=== PATIENT | male | born 1990 | race Hispanic/Latino ===

== ENCOUNTER 2018-08-15 13:47 | Emergency (ER) | payer SELFPAY ==
[~2018-08-15] VITALS: Ht 175.3 cm; Wt 142.9 kg
--- OUTSIDE RECORDS SUMMARY | 2018-08-15 13:50 | XMS REPORT ---
Author Author [facility] Address Unknown Phone Unavailable Care Team Providers Care Tube Buffer Name Role Phone Unavailable Unavailable Payers Payer Name Policy Type Policy Number Effective Date Expiration Date Problems This patient has no known problems. Allergies, Adverse Reactions, Alerts Allergy Name Allergy Type Status Severity Reaction(s) Onset Date Inactive Date Treating Clinician Comments No Known Allergies DA Active U 2017-12-31 00:00:00 No Known Contrast Allergies DA Active U 2007-02-21 00:00:00 No Known Drug Allergies DA Active U 2007-02-21 00:00:00 No Known Food Allergies DA Active U 2007-02-21 00:00:00 No Known Other Allergies DA Active U 2007-02-21 00:00:00 Medications This patient has no known medications.
[2018-08-15 16:27] LABS: BASOPHILS % 0.4 % (0.0-1.0); EOSINOPHILS # (AUTO) 0.1 (0.0-0.4); EOSINOPHILS % 0.8 % (0.0-6.0); HEMATOCRIT 43.6 % (38.2-49.6); HEMOGLOBIN 14.9 g/dL (14.0-18.0); LYMPHOCYTES # (AUTO) 1.8 (1.0-3.2); LYMPHOCYTES % 20.1 % (18.0-39.1); MEAN CORPUSCULAR HEMOGLOBIN 31.8 pg (28-32); MEAN CORPUSCULAR HGB CONC 34.2 g/dL (31-35); MONOCYTES # (AUTO) 0.6 (0.2-0.8); MONOCYTES % 6.7 % (4.4-11.3); NEUTROPHILS # (AUTO) 6.4 (2.1-6.9); NEUTROPHILS % 71.6 % (38.7-80.0); PLATELET COUNT 285 x10e3/uL (140-360); RED BLOOD COUNT 4.69 x10e6/uL (4.3-5.7)
[2018-08-15 16:52] LABS: ALANINE AMINOTRANSFERASE 40 IU/L (0-55); ALBUMIN/GLOBULIN RATIO 1.3 (0.8-2.0); ALKALINE PHOSPHATASE 79 IU/L (40-150); AMYLASE 85 U/L (25-125); ANION GAP 10.8 mmol/L (8-16); BLOOD UREA NITROGEN 14 mg/dL (7-26); BUN/CREATININE RATIO 17 (6-25); CALCIUM 9.6 mg/dL (8.4-10.2); CARBON DIOXIDE 26 mmol/L (22-29); CHLORIDE 102 mmol/L (98-107); CREATINE KINASE 86 IU/L (30-200); CREATININE, SERUM 0.81 mg/dL (0.72-1.25); EST GLOMERULAR FILTRATION RATE > 60 ML/MIN (60-); GLUCOSE 89 mg/dL (74-118); LIPASE 26 U/L (8-78); POTASSIUM 3.8 mmol/L (3.5-5.1); SODIUM 135 mmol/L (136-145)
== END 2018-08-15 18:07 | disposition home or self-care (01) ==
LOC: ER 13:47
DX: K21.9 Gastro-esophageal reflux disease without esophagitis (principal)
CPT/HCPCS: 36415; 80053; 82150; 82550; 82553; 83690; 84484; 85025; 93005; 99283

== ENCOUNTER 2019-09-18 22:26 | Emergency (ER) | payer SELFPAY ==
[~2019-09-18] VITALS: Ht 175.3 cm; Wt 142.9 kg
[2019-09-18] MEDS ORDERED: PANTOPRAZOLE 40 MG 10ML VIAL IV STA (22:45)
--- NOTE | 2019-09-18 23:07 | Emergency Department Note ---
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 Arrival Mode: [place] Onset (how long ago): day(s) (7) Location: UPPER ABD Quality: PAIN Radiation: Reports back Severity: mild Onset quality: gradual Duration (how long): day(s) (7) Progression: unchanged Chronicity: recurrent Context: Denies recent illness, Denies recent surgery Relieving factors: none Exacerbating factors: none Associated symptoms: Reports nausea/vomiting (WITHOUT VOMITING), Reports other (REPORTS BELCHING A LOT OVER LAST 7 DAYS WELL.) Treatments prior to arrival: none Past Medical/Family History Physician Review I have reviewed the patient's past medical and family history. Any updates have been documented here. Past Medical History Recent Fever: No Clinical Suspicion of Infectio: No New/Unexplained Change in Ment: No Other Medical History: PANCREATITIS H-PYLORI GASTRIC ULCERS Past Surgical History: None Social History Smoking Cessation: Current some day smoker Alcohol Use: Social Any Illegal Drug Use: No Physically hurt or threatened: No Family History Other family history HTN Other Last Tetanus: UNKNOWN Review of Systems Review of Systems Constitutional: Reports no symptoms EENTM: Reports no symptoms Cardiovascular: Reports no symptoms Respiratory: Reports no symptoms Gastrointestinal: Reports as per HPI Genitourinary: Reports no symptoms Musculoskeletal: Reports no symptoms Integumentary: Reports no symptoms Neurological: Reports no symptoms Psychological: Reports no symptoms Endocrine: Reports no symptoms Hematological/Lymphatic: Reports no symptoms Physical Exam Related Data Allergies: Coded Allergies: No Known Allergies (Unverified , 08/15/18) Triage Vital Signs Vital Signs Date Time Temp Pulse Resp B/P (MAP) Pulse Ox O2 Delivery O2 Flow Rate FiO2 09/18/19 22:41 98.4 102 20 139/95 100 Room Air Vital signs reviewed: Yes Physical Exam CONSTITUTIONAL Constitutional: Present well-developed, Present well-nourished, Present other (NO DISTRESS NOTED) HENT HENT: Present normocephalic, Present atraumatic, Present oropharynx clear/moist, Present nose normal HENT L/R: Present left ext ear normal, Present right ext ear normal EYES Eyes: Reports PERRL, Reports conjunctivae normal NECK Neck: Present ROM normal PULMONARY Pulmonary: Present effort normal, Present breath sounds normal CARDIOVASCULAR Cardiovascular: Present regular rhythm, Present heart sounds normal, Present capillary refill normal, Present normal rate GASTROINTESTINAL Abdominal: Present soft, Present bowel sounds normal, Present tender (MILD EP IGASTRIC) GENITOURINARY Genitourinary: Present exam deferred SKIN Skin: Present warm, Present dry MUSCULOSKELETAL Musculoskeletal: Present ROM normal NEUROLOGICAL Neurological: Present alert, Present oriented x 3, Present no gross motor or sensory deficits PSYCHOLOGICAL Psychological: Present mood/affect normal, Present judgement normal Results Laboratory Laboratory Laboratory Tests Test 09/18/19 22:40 09/18/19 22:30 White Blood Count 11.89 x10e3/uL (4.8-10.8) Red Blood Count 4.94 x10e6/uL (4.3-5.7) Hemoglobin 15.6 g/dL (14.0-18.0) Hematocrit 46.3 % (38.2-49.6) Mean Corpuscular Volume 93.7 fL (81-99) Mean Corpuscular Hemoglobin 31.6 pg (28-32) Mean Corpuscular Hemoglobin Concent 33.7 g/dL (31-35) Red Cell Distribution Width 12.7 % (11.7-14.4) Platelet Count 319 x10e3/uL (140-360) Neutrophils (%) (Auto) 73.4 % (38.7-80.0) Lymphocytes (%) (Auto) 17.4 % (18.0-39.1) Monocytes (%) (Auto) 6.5 % (4.4-11.3) Eosinophils (%) (Auto) 2.0 % (0.0-6.0) Basophils (%) (Auto) 0.3 % (0.0-1.0) Neutrophils # (Auto) 8.7 (2.1-6.9) Lymphocytes # (Auto) 2.1 (1.0-3.2) Monocytes # (Auto) 0.8 (0.2-0.8) Eosinophils # (Auto) 0.2 (0.0-0.4) Basophils # (Auto) 0.0 (0.0-0.1) Absolute Immature Granulocyte (auto 0.05 x10e3/uL (0-0.1) Sodium Level 138 mmol/L (136-145) Potassium Level 3.8 mmol/L (3.5-5.1) Chloride Level 105 mmol/L (98-107) Carbon Dioxide Level 23 mmol/L (22-29) Anion Gap 13.8 mmol/L (8-16) Blood Urea Nitrogen 11 mg/dL (7-26) Creatinine 0.83 mg/dL (0.72-1.25) Estimat Glomerular Filtration Rate > 60 ML/MIN (60-) BUN/Creatinine Ratio 13 (6-25) Glucose Level 99 mg/dL (74-118) Calcium Level 9.0 mg/dL (8.4-10.2) Total Bilirubin 0.3 mg/dL (0.2-1.2) Aspartate Amino Transf (AST/SGOT) 34 IU/L (5-34) Alanine Aminotransferase (ALT/SGPT) 74 IU/L (0-55) Alkaline Phosphatase 79 IU/L (40-150) Creatine Kinase 62 IU/L (30-200) Creatine Kinase MB 0.50 ng/mL (0-5.0) Troponin I < 0.001 ng/mL (0-0.300) Total Protein 7.7 g/dL (6.5-8.1) Albumin 4.1 g/dL (3.5-5.0) Globulin 3.6 g/dL (2.3-3.5) Albumin/Globulin Ratio 1.1 (0.8-2.0) Amylase Level 84 U/L (25-125) Lipase 26 U/L (8-78) Urine Color Yellow (YELLOW) Urine Clarity Clear (CLEAR) Urine pH 6 (5 - 7) Urine Specific [place] 1.005 (1.010-1.025) Urine Protein Negative (NEGATIVE) Urine Glucose (UA) Negative (NEGATIVE) Urine Ketones Negative (NEGATIVE) Urine Blood Small (NEGATIVE) Urine Nitrite Negative (NEGATIVE) Urine Bilirubin Negative (NEGATIVE) Urine Urobilinogen 0.2 mg/dL (0.2 - 1) Urine Leukocyte Esterase Negative (NEGATIVE) Urine RBC 0-5 /HPF (0-5) Urine WBC 0-5 /HPF (0-5) Urine Epithelial Cells None /LPF (NONE) Urine Bacteria Rare /HPF (NONE) Lab results reviewed: Yes Procedures 12 Lead ECG Interpretation ECG Interpretation : 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 CMP, AMYLASE, LIPASE, CARDIAC ENZYMES ORDERED TO EVAL FOR MYOCARDIAL INFARCTION, PANCREATITIS, ELEVATED LFT'S, ELECTROLYTE ABNORMALITY. PROTONIX 40 MG IV ORDERED PT DISCHARGED WITH PROTONIX 40 MG PO QD #15, BENTYL 20 MG 1 PO Q 6 HOURS PRN ABD PAIN #20, ZOFRAN ODT 4 MG 1 SL Q 6 HOURS PRN NAUSEA #20 PT INSTRUCTED ON BLAND DIET Reassessment Reassessment time: 00:57 Reassessment PT STATES FEELING BETTER SINCE RECEIVING THE PROTONIX Assessment & Plan Final Impression: (1) Gastritis Depart Disposition: HOME, SELF-CARE Last Vital Signs Date Time Temp Pulse Resp B/P (MAP) Pulse Ox O2 Delivery O2 Flow Rate FiO2 09/18/19 22:41 98.4 102 20 139/95 100 Room Air Medications in the ED Pantoprazole Sodium 40 mg NOW STAT IV ; Start 09/18/19 at 22:45; Stop 09/18/19 at 22:46; Status UNV CEDRICK PERALTA MD Sep 18, 2019 23:07
[2019-09-18 23:17] LABS: BASOPHILS % 0.3 % (0.0-1.0); EOSINOPHILS # (AUTO) 0.2 (0.0-0.4); HEMATOCRIT 46.3 % (38.2-49.6); HEMOGLOBIN 15.6 g/dL (14.0-18.0); LYMPHOCYTES # (AUTO) 2.1 (1.0-3.2); LYMPHOCYTES % 17.4 % (18.0-39.1); MEAN CORPUSCULAR HEMOGLOBIN 31.6 pg (28-32); MEAN CORPUSCULAR HGB CONC 33.7 g/dL (31-35); MEAN CORPUSCULAR VOLUME 93.7 fL (81-99); MONOCYTES # (AUTO) 0.8 (0.2-0.8); MONOCYTES % 6.5 % (4.4-11.3); NEUTROPHILS # (AUTO) 8.7 (2.1-6.9); NEUTROPHILS % 73.4 % (38.7-80.0); PLATELET COUNT 319 x10e3/uL (140-360); RED BLOOD COUNT 4.94 x10e6/uL (4.3-5.7); RED CELL DISTRIBUTION WIDTH 12.7 % (11.7-14.4)
[2019-09-18 23:20] LABS: BILIRUBIN,URINE NEGATIVE (NEGATIVE); CLARITY,URINE CLEAR (CLEAR); COLOR,URINE YELLOW (YELLOW); KETONES,URINE NEGATIVE (NEGATIVE); LEUKOCYTE ESTERASE ,URINE NEGATIVE (NEGATIVE); NITRITE,URINE NEGATIVE (NEGATIVE); PROTEIN,URINE DIPSTICK NEGATIVE (NEGATIVE); URINE UROBILINOGEN 0.2 mg/dL (0.2 - 1)
[2019-09-18 23:25] LABS: BACTERIA,URINE RARE /HPF; RBC,URINE 0-5 /HPF (0-5); WBC,URINE (MAN) 0-5 /HPF (0-5)
[2019-09-18 23:36] LABS: ALANINE AMINOTRANSFERASE 74 IU/L (0-55); ALBUMIN 4.1 g/dL (3.5-5.0); ALBUMIN/GLOBULIN RATIO 1.1 (0.8-2.0); ALKALINE PHOSPHATASE 79 IU/L (40-150); ANION GAP 13.8 mmol/L (8-16); BLOOD UREA NITROGEN 11 mg/dL (7-26); BUN/CREATININE RATIO 13 (6-25); CARBON DIOXIDE 23 mmol/L (22-29); CHLORIDE 105 mmol/L (98-107); CREATINE KINASE 62 IU/L (30-200); CREATININE, SERUM 0.83 mg/dL (0.72-1.25); EST GLOMERULAR FILTRATION RATE > 60 ML/MIN (60-); GLUCOSE 99 mg/dL (74-118); POTASSIUM 3.8 mmol/L (3.5-5.1); SODIUM 138 mmol/L (136-145)
[2019-09-18 23:37] LABS: AMYLASE 84 U/L (25-125); LIPASE 26 U/L (8-78)
== END 2019-09-19 01:40 | disposition home or self-care (01) ==
LOC: ER 22:45
DX: R10.13 Epigastric pain (principal); K29.70 Gastritis, unspecified, without bleeding; R11.0 Nausea; R42 Dizziness and giddiness; R14.2 Eructation; Z86.39 Personal history of other endocrine, nutritional and metabolic disease; F17.210 Nicotine dependence, cigarettes, uncomplicated
CPT/HCPCS: 36415; 80053; 81001; 82150; 82550; 82553; 83690; 84484; 85025; 93005; 96374; 99284; C9113

== ENCOUNTER 2021-08-28 14:58 | Emergency (ER) | payer SELFPAY ==
[~2021-08-28] VITALS: Ht 175.3 cm; Wt 157.0 kg
[2021-08-28] MEDS ORDERED: SODIUM CHLORIDE 0.9% 1000ML 1,000 ML IV STA (15:35)
[2021-08-28] MEDS ORDERED: ONDANSETRON ODT4 MG PO (15:42)
[2021-08-28] MEDS ORDERED: OMEPRAZOLE40 MG PO (15:42)
[2021-08-28] MEDS ORDERED: ONDANSETRON HCL INJ 2MG/ML 2ML 2 MG/ML VIAL IV ONE (15:45)
[2021-08-28] MEDS ORDERED: ONDANSETRON HCL INJ 2MG/ML 2ML 2 MG/ML VIAL ONE (15:53)
[2021-08-28] MEDS ORDERED: FAMOTIDINE 20 MG/2 ML VIAL IV ONE (15:54)
[2021-08-28] MEDS ORDERED: SODIUM CHLORIDE 0.9% 1000ML 1,000 ML ONE (15:54)
== END 2021-08-28 16:49 | disposition home or self-care (01) ==
LOC: FSED 15:17
DX: K29.71 Gastritis, unspecified, with bleeding (principal)
CPT/HCPCS: 80048; 80076; 81003; 85025; 96374; 96375; 99283; C9113; J2405; J7030

== ENCOUNTER 2021-12-05 21:16 | Emergency (ER) | payer SELFPAY ==
[~2021-12-05] VITALS: Ht 175.3 cm; Wt 156.9 kg
[~2021-12-05 21:16] MED LIST: OMEPRAZOLE40 MG PO; ONDANSETRON ODT4 MG PO
[2021-12-05] MEDS ORDERED: LACTATED RINGER'S 1,000 ML INJ ONE (21:30)
[2021-12-05] MEDS ORDERED: DICYCLOMINE HCL 20 MG/2 ML VIAL IM ONE (21:30)
[2021-12-05 21:39] LABS: BASOPHILS % 0.4 % (0.0-1.0); EOSINOPHILS # (AUTO) 0.3 (0.0-0.4); EOSINOPHILS % 2.4 % (0.0-6.0); HEMATOCRIT 47.5 % (38.2-49.6); HEMOGLOBIN 15.7 g/dL (14.0-18.0); LYMPHOCYTES # (AUTO) 2.2 (1.0-3.2); LYMPHOCYTES % 20.7 % (18.0-39.1); MEAN CORPUSCULAR HEMOGLOBIN 32.2 pg (28-32); MEAN CORPUSCULAR HGB CONC 33.1 g/dL (31-35); MEAN CORPUSCULAR VOLUME 97.3 fL (81-99); MONOCYTES # (AUTO) 0.6 (0.2-0.8); MONOCYTES % 5.8 % (4.4-11.3); NEUTROPHILS # (AUTO) 7.6 (2.1-6.9); NEUTROPHILS % 70.4 % (38.7-80.0); PLATELET COUNT 338 x10e3/uL (140-360); RED BLOOD COUNT 4.88 x10e6/uL (4.3-5.7); RED CELL DISTRIBUTION WIDTH 12.8 % (11.7-14.4)
[2021-12-05 21:46] LABS: INR 0.92; PARTIAL THROMBOPLASTIN TIME 26.2 seconds (23.8-35.5); PROTHROMBIN TIME 13.2 seconds (11.9-14.5)
[2021-12-05 21:58] LABS: ALBUMIN 3.9 g/dL (3.5-5.0); ALBUMIN/GLOBULIN RATIO 1.1 (0.8-2.0); ANION GAP 15.8 mmol/L (8-16); CALCIUM 9.8 mg/dL (8.4-10.2); CREATININE, SERUM 0.91 mg/dL (0.72-1.25); POTASSIUM 3.8 mmol/L (3.5-5.1)
[2021-12-05] MEDS ORDERED: IOPAMIDOL 370 MG/ML 100 ML INFUS..BTL INJ ONE (22:24)
[2021-12-05] MEDS ORDERED: OMEPRAZOLE40 MG PO (22:50)
== END 2021-12-05 22:59 | disposition home or self-care (01) ==
LOC: ER 21:34
DX: K92.1 Melena (principal); K27.9 Peptic ulcer, site unspecified, unspecified as acute or chronic, without hemorrhage or perforation; Z20.822 Contact with and (suspected) exposure to COVID-19; E66.09 Other obesity due to excess calories; Z68.43 Body mass index [BMI] 50.0-59.9, adult
CPT/HCPCS: 36415; 74177; 80053; 82270; 83690; 85025; 85610; 85730; 99284; C9113; J0500; J7121; Q9967

== ENCOUNTER 2022-02-02 10:20 | Emergency (ER) | payer SELFPAY ==
[~2022-02-02] VITALS: Ht 175.3 cm; Wt 163.3 kg
== END 2022-02-02 11:02 | disposition home or self-care (01) ==
LOC: FSED 10:28
DX: R42 Dizziness and giddiness (principal); R73.9 Hyperglycemia, unspecified; Z87.11 Personal history of peptic ulcer disease; F17.210 Nicotine dependence, cigarettes, uncomplicated
CPT/HCPCS: 36415; 82948; 99282

== ENCOUNTER 2022-07-30 19:46 | Emergency (ER) | payer SELFPAY ==
[~2022-07-30] VITALS: Ht 175.3 cm; Wt 163.3 kg
[2022-07-30] MEDS ORDERED: TRAMADOL HCL 50 MG TAB PO ONE (21:15)
[2022-07-30] MEDS ORDERED: KETOROLAC TROMETHAMINE 30 MG/ML VIAL IV STA (21:43)
[2022-07-30] MEDS ORDERED: SODIUM CHLORIDE 0.9% 1000ML 1,000 ML IV SCH (21:45)
[2022-07-30] MEDS ORDERED: PIPERACILLIN/TAZOBACTAM 3.375 GM VIAL ONE (21:51)
[2022-07-30] MEDS ORDERED: KETOROLAC TROMETHAMINE 30 MG/ML VIAL ONE (21:51)
[2022-07-30] MEDS ORDERED: SODIUM CHLORIDE 0.9% 1000ML 1,000 ML ONE (21:51)
[2022-07-31] MEDS ORDERED: CLEOCIN HCL300 MG PO (00:16)
[2022-07-31] MEDS ORDERED: DOXYCYCLINE MO100 M1 PO (00:16)
[2022-07-31] MEDS ORDERED: ULTRAM 50MG50 MG PO (00:17)
[2022-07-31 00:32] VITALS: O2SAT 97
== END 2022-07-31 00:34 | disposition home or self-care (01) ==
LOC: FSED 20:06
DX: M79.675 Pain in left toe(s) (principal); L03.032 Cellulitis of left toe; B35.1 Tinea unguium; B35.3 Tinea pedis; E66.01 Morbid (severe) obesity due to excess calories
CPT/HCPCS: 73660; 80053; 85025; 99284; J1885; J2543; J7030

== ENCOUNTER 2022-09-22 12:40 | Emergency (ER) | payer SELFPAY ==
[~2022-09-22] VITALS: Ht 175.3 cm; Wt 166.3 kg
[~2022-09-22 12:40] MED LIST changes: +CLEOCIN HCL300 MG PO; +DOXYCYCLINE MO100 M1 PO; +ULTRAM 50MG50 MG PO
[2022-09-22] MEDS ORDERED: SODIUM CHLORIDE 0.9% 1000ML 1,000 ML IV SCH (14:30)
[2022-09-22] MEDS ORDERED: KETOROLAC TROMETHAMINE 30 MG/ML VIAL IV ONE (14:35)
[2022-09-22] MEDS ORDERED: IOPAMIDOL 370 MG/ML 100 ML INFUS..BTL INJ ONE (14:40)
[2022-09-22] MEDS ORDERED: FAMOTIDINE 20 MG/2 ML VIAL IV ONE ×2 (14:56→15:00)
[2022-09-22] MEDS ORDERED: SODIUM CHLORIDE 0.9% 1000ML 1,000 ML ONE (15:00)
[2022-09-22] MEDS ORDERED: KETOROLAC TROMETHAMINE 30 MG/ML VIAL ONE (15:00)
[2022-09-22] MEDS ORDERED: PREDNISONE50 MG PO (17:34)
[2022-09-22] MEDS ORDERED: PANTOPRAZOLE SO40 MG PO (17:34)
[2022-09-22] MEDS ORDERED: CYCLOBENZAPRINE10 MG PO (17:35)
[2022-09-22 17:52] VITALS: O2SAT 96
== END 2022-09-22 17:52 | disposition home or self-care (01) ==
LOC: FSED 12:42
DX: R10.30 Lower abdominal pain, unspecified (principal); M54.16 Radiculopathy, lumbar region; K21.9 Gastro-esophageal reflux disease without esophagitis; E66.01 Morbid (severe) obesity due to excess calories; Z87.19 Personal history of other diseases of the digestive system; F17.210 Nicotine dependence, cigarettes, uncomplicated
CPT/HCPCS: 74177; 80053; 81003; 85025; 96374; 96375; 99284; J1885; J7030; Q9967

== ENCOUNTER 2024-05-17 13:44 | Emergency (ER) | payer SELFPAY ==
[~2024-05-17] VITALS: Ht 175.3 cm; Wt 170.2 kg
[~2024-05-17 13:44] MED LIST changes: +BENZONATATE200 MG PO; +CYCLOBENZAPRINE10 MG PO; +IBUPROFEN200 MG PO; +LOMOTIL TABLET1 EACH PO; +PANTOPRAZOLE SO40 MG PO; +PREDNISONE50 MG PO; +PROVENTIL HFA6.7 GM INH; +TAMIFLU75 MG PO; +TYLENOL325 MG PO
[2024-05-17] MEDS ORDERED: LEVOTHYROXINE50 MCG PO (14:19)
[2024-05-17] MEDS: ONDANSETRON HCL INJ 2MG/ML 2ML 2 MG/ML VIAL IV STA (14:34)
[2024-05-17] MEDS: ASPIRIN 325 MG TAB PO ONE (14:34)
[2024-05-17 15:56] VITALS: PULSE 85; RESP 19; TEMP 97.5; O2SAT 97
== END 2024-05-17 15:56 | disposition home or self-care (01) ==
LOC: FSED 13:47
DX: R42 Dizziness and giddiness (principal); R07.89 Other chest pain; R20.0 Anesthesia of skin; R20.2 Paresthesia of skin; E03.9 Hypothyroidism, unspecified; K21.9 Gastro-esophageal reflux disease without esophagitis; E66.9 Obesity, unspecified; F41.9 Anxiety disorder, unspecified; R94.31 Abnormal electrocardiogram [ECG] [EKG]; Z87.19 Personal history of other diseases of the digestive system
CPT/HCPCS: 71046; 80053; 80076; 80307; 81003; 82553; 83880; 84484; 85025; 85379; 93005; 96374; 99284; J2405

== ENCOUNTER 2024-08-27 00:52 | Emergency (ER) | payer SELFPAY ==
[~2024-08-27] VITALS: Ht 175.3 cm; Wt 170.1 kg
[~2024-08-27 00:52] MED LIST changes: +ETODOLAC400 MG PO; +LEVOTHYROXINE50 MCG PO; +NEURONTIN300 MG PO; +PAROXETINE HCL20 MG PO; +PROCTOFOAM-HC F10 GM TOP; +TIZANIDINE HCL4 MG PO
[2024-08-27 00:57] VITALS: PULSE 92; RESP 18; TEMP 98.4
[2024-08-27 01:07] LABS: BASOPHILS % 0.3 % (0.0-1.0); EOSINOPHILS # (AUTO) 0.1 (0.0-0.4); EOSINOPHILS % 0.8 % (0.0-6.0); HEMATOCRIT 47.2 % (38.2-49.6); LYMPHOCYTES % 22.2 % (18.0-39.1); MEAN CORPUSCULAR HEMOGLOBIN 31.6 pg (28-32); MEAN CORPUSCULAR HGB CONC 33.9 g/dL (31-35); MEAN CORPUSCULAR VOLUME 93.1 fL (81-99); MONOCYTES # (AUTO) 0.7 (0.2-0.8); MONOCYTES % 8.2 % (4.4-11.3); NEUTROPHILS # (AUTO) 6.1 (2.1-6.9); NEUTROPHILS % 68.3 % (38.7-80.0); PLATELET COUNT 320 x10e3/uL (140-360); RED BLOOD COUNT 5.07 x10e6/uL (4.3-5.7); RED CELL DISTRIBUTION WIDTH 13.2 % (11.7-14.4); WHITE BLOOD COUNT 8.97 x10e3/uL (4.8-10.8)
[2024-08-27 01:16] LABS: BILIRUBIN,URINE NEGATIVE (NEGATIVE); CLARITY,URINE CLEAR (CLEAR); COLOR,URINE YELLOW (YELLOW); GLUCOSE, URINE NEGATIVE (NEGATIVE); KETONES,URINE NEGATIVE (NEGATIVE); LEUKOCYTE ESTERASE ,URINE SMALL (NEGATIVE); NITRITE,URINE NEGATIVE (NEGATIVE); PH,URINE 6.5 (5 - 7); PROTEIN,URINE DIPSTICK NEGATIVE (NEGATIVE); URINE UROBILINOGEN 0.2 mg/dL (0.2 - 1)
[2024-08-27] MEDS: BELLADONNA ALK/PHENOBARBITAL 5 ML UDC PO ONE (01:22)
[2024-08-27] MEDS: ONDANSETRON HCL INJ 2MG/ML 2ML 2 MG/ML VIAL IV STA (01:22)
[2024-08-27] MEDS: MAGNESIUM/ALUMINUM/SIMETHICONE 30 ML UDC PO STA (01:22)
[2024-08-27] MEDS: LIDOCAINE VISC 2% SOLN 15 ML UDC PO STA (01:22)
[2024-08-27 01:25] LABS: ALBUMIN/GLOBULIN RATIO 1.1 (0.8-2.0); ANION GAP 15.9 mmol/L (8-16); BILIRUBIN,TOTAL 0.4 mg/dL (0.2-1.2); CALCIUM 9.3 mg/dL (8.4-10.2); CREATININE, SERUM 0.88 mg/dL (0.72-1.25); POTASSIUM 3.9 mmol/L (3.5-5.1); TOTAL PROTEIN 7.8 g/dL (6.5-8.1)
[2024-08-27 01:36] LABS: BACTERIA,URINE MANY /HPF; EPITHELIAL CELLS,URINE FEW /LPF; WBC,URINE (MAN) 21-50 /HPF (0-5)
[2024-08-27] MEDS ORDERED: PROTONIX20 MG PO (01:38)
[2024-08-27 01:42] VITALS: BP 142/98; PULSE 97; RESP 19; O2SAT 97
== END 2024-08-27 01:46 | disposition home or self-care (01) ==
LOC: ER 00:58
DX: R10.13 Epigastric pain (principal); G89.29 Other chronic pain; R11.2 Nausea with vomiting, unspecified; E66.9 Obesity, unspecified; E03.9 Hypothyroidism, unspecified; K21.9 Gastro-esophageal reflux disease without esophagitis; F41.9 Anxiety disorder, unspecified
CPT/HCPCS: 36415; 80053; 81001; 83690; 85025; 99284; J2405